=== PATIENT | female | born 2005 | race African-American/Black ===

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

== ENCOUNTER 2024-11-07 15:42 | Emergency (ER) | payer OTHER ==
[~2024-11-07] VITALS: Ht 160 cm; Wt 100.0 kg
[~2024-11-07 15:42] MED LIST changes: +LIDO-57 TP; -LIDO700A15 TP; -NAPR-1025 PO; +NAPR-1196 PO; +NITR-104 PO
[2024-11-07 15:58] VITALS: TEMP 98.3
[2024-11-07] MEDS ORDERED: DIPH-1243 PO (16:35)
[2024-11-07 16:46] VITALS: BP 106/66; PULSE 79; RESP 20; O2SAT 99
== END 2024-11-07 17:17 | disposition home or self-care (01) ==
LOC: EMS 15:42
DX: L50.9 Urticaria, unspecified (principal); F12.90 Cannabis use, unspecified, uncomplicated; Z79.899 Other long term (current) drug therapy; Z88.0 Allergy status to penicillin
CPT/HCPCS: 99282; Z7502; Z7610

== ENCOUNTER 2025-01-15 18:43 | Emergency (ER) | payer OTHER ==
[~2025-01-15] VITALS: Ht 165.1 cm; Wt 90.9 kg
[~2025-01-15 18:43] MED LIST changes: -ACET-66 PO; -CYCL-448 PO; +DIPH-1243 PO; -IBUP-1554 PO; -LIDO-57 TP; -NAPR-1196 PO; -NITR-104 PO
[2025-01-15 19:11] VITALS: BP 133/74; PULSE 98; RESP 16; TEMP 97.9; O2SAT 100
== END 2025-01-15 23:35 | disposition left against medical advice (07) ==
LOC: EMS 18:45
DX: M25.562 Pain in left knee (principal); Z53.21 Procedure and treatment not carried out due to patient leaving prior to being seen by health care provider